=== PATIENT | male | born 1950 | race Caucasian/White ===

== ENCOUNTER 2018-02-13 08:55 | Day surgery (SDC) | payer OTHER ==
[2018-02-12 08:46] LABS: BASOPHILS 0.4 % (0-2); EOSINOPHILS 4.5 % (0-7); HEMATOCRIT 44.1 % (42.0-54.0); HEMOGLOBIN 14.9 g/dL (13.5-17.5); IMMATURE GRANULOCYTES 0.2 % (0-5); LYMPHOCYTES 29.6 % (15-50); MCH 32.5 pg (26.0-34.0); MCHC 33.8 g/dL (31.0-37.0); MCV 96.3 fL (80.0-100.0); MEAN PLATELET VOLUME 9.8 fL (7.4-10.4); MONOCYTES 12.7 % (2-11); NEUTROPHILS 52.6 % (40-80); PLATELET COUNT 181 10x3/uL (130-400); RBC 4.58 10x6/uL (4.20-6.10); RDW 13.6 % (11.5-14.5); WBC 4.9 10x3/uL (4.8-10.8)
[2018-02-12 09:14] LABS: CALC OSMOLALITY 281 mosm/kg (275-300); CALCIUM 8.8 mg/dL (8.5-10.1); CARBON DIOXIDE 29.4 mmol/L (21.0-32.0); CHLORIDE - SERUM 106 mmol/L (98-107); GLUCOSE 108 mg/dL (74-106); POTASSIUM - SERUM 4.2 mmol/L (3.5-5.1); SODIUM 141 mmol/L (136-145); UREA NITROGEN 12 mg/dL (7-18); eGFR NON AFRICAN AMERICAN 79 mL/min (90-120)
[~2018-02-13] VITALS: Ht 172.7 cm; Wt 81.2 kg
--- NOTE | ~2018-02-13 | OP ---
PATIENT NAME: XIMENA DRAKE MEDICAL RECORD: [id number] :52 LOCATION:D.OPS ADMISSION DATE: SURGEON: LEANDRO CHAVARRIA MD DATE OF OPERATION: 02/13/2018 PREOPERATIVE DIAGNOSES: 1. Appendiceal orifice polyp. 2. Hypertension. 3. Hypercholesterolemia. POSTOPERATIVE DIAGNOSES: 1. Appendiceal orifice polyp. 2. Hypertension. 3. Hypercholesterolemia. PROCEDURE: Laparoscopic appendectomy. SURGEON: Leandro Chavarria MD REPORT OF PROCEDURE: The patient's abdomen was prepped and draped in sterile fashion. A cutdown was made on the superior aspect of the umbilicus, 0 Vicryls were placed on the fascia bilaterally and the fascia was incised with 15-blade. I then bluntly entered the peritoneal cavity and placed a 12-mm Amy port. Under direct visualization, a 5 mm trocar was placed in the left lower quadrant and another was placed in the suprapubic region. The patient's appendix was elevated and there were no signs of any external masses or inflammation noted. A window was made at the base of the appendix and the mesoappendix and the mesoappendix was transected with a 45 white load Endo-BEVERLEY stapler. The appendix was transected at its base, incorporating a small aspect of the patient's cecum using a 45 blue load Endo-BEVERLEY stapler. We then opened up the appendix on the back table and there was noted to be a polyp present on the distal aspect of the tissue. The margins appeared to be clear of adenomatous polyp. At this point, the ports and insufflation were then removed. The fascia was then closed with interrupted 0 Vicryls times 3. The wounds were irrigated out with normal saline and infused with 10 mL of 0.25% Marcaine with epinephrine. The skin incisions were closed with subcutaneous 5-0 Monocryl and dressed appropriately. COMPLICATIONS: None. CONDITION: Stable. ANESTHESIA: General endotracheal and local. BLOOD LOSS: Minimal. TRANSINT:[id number] Voice Confirmation ID: [id number] DOCUMENT ID: [id number] OPERATIVE REPORT [id number] XIMENA DRAKE LEANDRO CHAVARRIA MD at 1418 CC: ANITA BORRERO MD [id number] DICTATION DATE: 02/13/18 1116 PHYSICIST CRYOGENICS: 02/13/18 1132 [facility] 02/13/18 [facility] [address] [place] [address]
[~2018-02-13 08:55] MED LIST: BAYER CHEWABLE81 MG PO; CENTRUM SILVER1 TA1 PO; COZAAR25 MG PO; FISH OIL 1,0001 CA1; FLAXSEED OIL1000 MG; HYDROCHLOROTH12.5 M1 PO; MAG-OX 400 MG400 MG PO; NEXIUM40 MG; XANAX0.25 MG PO
[2018-02-13 09:23] VITALS: BP 134/85; Ht 172.7 cm; Wt 81.2 kg
[2018-02-13] MEDS ORDERED: HYDROCODONE-APA1 TAB PO (11:15)
== END 2018-02-13 13:15 | disposition home or self-care (01) ==
LOC: D.OPS 08:55
PROVIDERS: Surgery
DX: K38.8 Other specified diseases of appendix (principal); I10 Essential (primary) hypertension; E78.00 Pure hypercholesterolemia, unspecified; Z01.812 Encounter for preprocedural laboratory examination